=== PATIENT | female | born 1995 | race Caucasian/White ===

== ENCOUNTER 2018-11-15 01:43 | Emergency (ER) | payer BC ==
[2018-11-15] MEDS ORDERED: Sodium Chloride 0.9% 10 ML Syringe FLUSH PRN (01:50)
--- NOTE | 2018-11-15 01:53 | EDM.PDOC ---
ED HPI GENERAL MEDICAL PROBLEM - General Chief Complaint: Drug or Alcohol Abuse Stated Complaint: UNRESPONSIVE, EEL POUT Time Seen by Provider: 11/15/18 01:50 Source of Information: Reports: Patient, EMS, RN Notes Reviewed History Limitations: Reports: Intoxication, Physical Impairment - History of Present Illness INITIAL COMMENTS - FREE TEXT/NARRATIVE: 23-year-old female presents to the emergency department today via EMS services for unresponsive event, she was found at the [facility] intoxicated cold lying in a snow bank, unresponsive and vomited one time when initially picked up by EMS by the time she arrives in the door her GCS is 15 and she is communicating with us denies pain Pain Score (Numeric/FACES): 0 - Related Data Allergies Allergy/AdvReac Type Severity Reaction Status Date / Time No Known Allergies Allergy Verified 11/15/18 01:50 Social & Family History - Tobacco Use Smoking Status *Q: Never Smoker ED ROS GENERAL - Review of Systems Review Of Systems: See Below Constitutional: Reports: Other (Cold) HEENT: Reports: No Symptoms Respiratory: Reports: No Symptoms Cardiovascular: Reports: No Symptoms GI/Abdominal: Reports: Nausea, Vomiting : Reports: No Symptoms Musculoskeletal: Reports: No Symptoms Skin: Reports: No Symptoms Neurological: Reports: No Symptoms - Physical Exam Exam: See Below Text/Narrative:: General: Female, intoxicated but not in any distress, alert GCS 15 HEENT: head is atraumatic normocephalic, eyes pupils equal round reactive to light, sclera clear no conjunctivitis appreciated. Ears tympanic membranes clear and [place] landmarks and light reflex are present bilaterally canals are clear. Nose no septal deviation, nares are clear, no blood present. Mouth mucosa is moist and pink no erythema or exudate noted in soft palate, tongue is midline uvula is midline, dentition is intact. Neck: Supple no thyromegaly no tracheal deviation. Nodes: Cervical nodes subclavicular nodes nontender no palpable lymphadenopathy noted. Lungs: clear to auscultation bilaterally with symmetrical respirations, no adventitious noise appreciated. CV: Regular rate and rhythm S1 and S2 appreciated no murmurs rubs or gallops noted. Abdomen: Soft, nontender, no palpable masses or organomegaly appreciated, no distention no guarding bowel sounds are present, . Neuro: Cranial nerves II through XII intact Skin: Warm and dry, intact Extremities: No lower extremity edema appreciated, pedal pulse is +2. Lower extremities are wet and cold Course - Vital Signs Last Recorded V/S: Last Vital Signs Temp 97.3 F 11/15/18 01:58 Pulse 88 11/15/18 01:58 Resp 15 11/15/18 01:58 BP 134/71 11/15/18 01:58 Pulse Ox 99 11/15/18 01:58 - Orders/Labs/Meds Orders: Active Orders 24 hr Category Date Time Status Peripheral IV Care [RC] . DIRECTED Care 11/15/18 01:50 Active Sodium Chloride 0.9% [Normal Saline] 1,000 ml Med 11/15/18 02:00 Active IV ASDIRECTED Sodium Chloride 0.9% [Saline Flush] Med 11/15/18 01:50 Active 10 ml FLUSH ASDIRECTED PRN Peripheral IV Insertion Adult [OM.PC] Urgent Oth 11/15/18 01:50 Ordered Medication Orders Sodium Chloride (Normal Saline) 1,000 mls @ 999 mls/hr IV ASDIRECTED GABRIELA Last Admin: 11/15/18 02:03 Dose: 999 mls/hr Sodium Chloride (Saline Flush) 10 ml FLUSH ASDIRECTED PRN PRN Reason: Keep Vein Open Last Admin: 11/15/18 02:02 Dose: 10 ml Labs: Laboratory Tests 11/15/18 11/15/18 11/15/18 Range/Units 01:55 01:55 01:55 WBC 6.6 (4.5-11.0) K/uL RBC 3.91 (3.30-5.50) M/uL Hgb 11.8 L (12.0-15.0) g/dL Hct 35.8 L (36.0-48.0) % MCV 92 (80-98) fL MCH 30 (27-31) pg MCHC 33 (32-36) % Plt Count 227 (150-400) K/uL Neut % (Auto) 67 H (36-66) % Lymph % (Auto) 26 (24-44) % [place] % (Auto) 6 (2-6) % Eos % (Auto) 1 L (2-4) % Baso % (Auto) 1 (0-1) % Sodium 143 (140-148) mmol/L Potassium 4.6 (3.6-5.2) mmol/L Chloride 105 (100-108) mmol/L Carbon Dioxide 23 (21-32) mmol/L Anion Gap 15.3 H (5.0-14.0) mmol/L BUN 9 (7-18) mg/dL Creatinine 0.6 (0.6-1.0) mg/dL Est Cr Clr Drug Dosing 141.81 mL/min Estimated GFR (MDRD) > 60 (>60) Glucose 106 (74-106) mg/dL Calcium 7.9 L (8.5-10.1) mg/dL Ethyl Alcohol 291 mg/dL Meds: Medications Generic Name Dose Route Start Last Admin Trade Name Freq PRN Reason Stop Dose Admin Sodium Chloride 1,000 mls @ 999 mls/hr 11/15/18 02:00 11/15/18 02:03 Normal Saline IV 999 mls/hr ASDIRECTED GABRIELA Administration Sodium Chloride 10 ml 11/15/18 01:50 11/15/18 02:02 Saline Flush FLUSH 10 ml ASDIRECTED PRN Administration Keep Vein Open Departure - Departure Time of Disposition: 03:07 Disposition: Home, Self-Care 01 Condition: Fair Clinical Impression: Alcohol intoxication Qualifiers: Complication of substance-induced condition: uncomplicated Qualified Code(s): F10.920 - Alcohol use, unspecified with intoxication, uncomplicated - Discharge Information Referrals: PCP,None [Primary Care Provider] - Forms: ED Department Discharge Additional Instructions: Follow-up with primary care as needed, recommend refrain from alcohol - My Orders Last 24 Hours: My Active Orders 11/15/18 01:50 Peripheral IV Care [RC] . DIRECTED Sodium Chloride 0.9% [Saline Flush] 10 ml FLUSH ASDIRECTED PRN Peripheral IV Insertion Adult [OM.PC] Urgent 11/15/18 02:00 Sodium Chloride 0.9% [Normal Saline] 1,000 ml IV ASDIRECTED - Assessment/Plan Last 24 Hours: My Active Orders 11/15/18 01:50 Peripheral IV Care [RC] . DIRECTED Sodium Chloride 0.9% [Saline Flush] 10 ml FLUSH ASDIRECTED PRN Peripheral IV Insertion Adult [OM.PC] Urgent 11/15/18 02:00 Sodium Chloride 0.9% [Normal Saline] 1,000 ml IV ASDIRECTED Plan: Assessment Acuity = acute Site and laterality = alcohol intoxication Etiology = EtOH Manifestations = none Location of injury = Home Lab values = alcohol at 291 remainder lab work unremarkable Plan is presents he agreed he would take her home she is in agreement with the plan as well follow-up primary care as needed This note was dictated using [employer] voice recognition software please call with any questions on syntax or grammar.
[2018-11-15] MEDS ORDERED: Sodium Chloride 0.9% 1,000 ML IV SCH (02:00)
== END 2018-11-15 03:50 | disposition home or self-care (01) ==
LOC: JP.ED 01:43
DX: F10.920 Alcohol use, unspecified with intoxication, uncomplicated (principal); Y90.8 Blood alcohol level of 240 mg/100 ml or more
CPT/HCPCS: 36415; 80048; 85025; 96360; 99284; G0480; J7030